=== PATIENT | male | born 1975 | race Caucasian/White ===

== ENCOUNTER → 2016-12-21 | Outpatient (CLI) | payer OTHER ==
--- NOTE | 2016-12-22 10:25 | MRI ---
HISTORY: Cervicalgia, radiculopathy Study: MRI cervical spine without contrast Comparison: None Technique: Multiplanar multisequence MRI of the cervical spine was obtained utilizing standard depar tmental protocol. Findings: Alignment of the cervical spine is maintained. No abnormal signal characteristics of the bone marro w can be identified. No evidence for fracture or significant bone or edema can be seen. The surrou nding soft tissues are unremarkable. The cervical spinal cord is normal in size and configuration a nd without foci of abnormal signal. C2 -- C3: No evidence for compressive disc disease. The neural foramina are patent. The joints are n ormal. C3 -- C4: No evidence for compressive disc disease. The neural foramina are patent. The joints are n ormal. C4 -- C5: No evidence for compressive disc disease. The neural foramina are patent. The joints are n ormal. C5 -- C6: No evidence for compressive disc disease. The neural foramina are patent. The joints are n ormal. C6 -- C7: No evidence for compressive disc disease. The neural foramina are patent. The joints are n ormal. C7 -- T1: No evidence for compressive disc disease. The neural foramina are patent. The joints are n ormal. IMPRESSION: No evidence for compressive disc disease or compressive spondylitic change at any level Reported By:
== END ==
LOC: RAD 14:52
PROVIDERS: ATTEND Nurse Practitioner Family
DX: M54.2 Cervicalgia (principal); S46.001S Unspecified injury of muscle(s) and tendon(s) of the rotator cuff of right shoulder, sequela; X58.XXXS Exposure to other specified factors, sequela
CPT/HCPCS: 72141

== ENCOUNTER 2017-10-02 10:38 | Observation (INO) | payer OTHER ==
[2017-10-02] MEDS ORDERED: ZOFRAN INJ 4 MG VIAL IVP PRN (12:55)
[2017-10-02] MEDS ORDERED: PEPCID 20 MG IV PREMIX* 20 MG/50 ML BAG IV PRN (12:55)
[2017-10-02 13:25] LABS: ALANINE AMINOTRANSFERASE 14 Units/L (12-78); ALBUMIN 3.3 g/dL (3.4-5.0); ALKALINE PHOSPHATASE 52 Units/L (46-116); AMYLASE 36 Units/L (25-115); ASPARTATE AMINO TRANSFERASE 12 Units/L (15-37); BLOOD UREA NITROGEN 8 mg/dL (7-18); CALCIUM 8.3 mg/dL (8.5-10.1); CARBON DIOXIDE 30.4 mmol/L (21-32); CHLORIDE 105 mmol/L (98-107); COR CA(FOR HYPOALB) 8.9 mg/dL (8.5-10.1); LIPASE 91 Units/L (73-393); SODIUM 141 mmol/L (136-145); TOTAL PROTEIN 7.2 g/dL (6.4-8.2); eGFR BLACK RACES > 60 (>60); eGFR NON BLACK RACES > 60 (>60)
[2017-10-02] MEDS: NS 1000 ML 1,000 ML IV SCH (13:33)
[2017-10-02] MEDS: PERCOCET TAB 5/325 MG PO PRN ×2 (13:34→20:32)
[2017-10-02 13:51] LABS: BASOPHILS % (AUTO) 0.3 % (0.2-1.0); EOSINOPHILS # (AUTO) 0.1 x10^3/uL (0.0-0.2); EOSINOPHILS % (AUTO) 0.8 % (0.9-2.9); HEMATOCRIT 38.9 % (42.0-54.0); HEMOGLOBIN 13.7 g/dL (13.5-18.0); LYMPHOCYTES # (AUTO) 0.8 X10^3/uL (1.3-2.9); MEAN CORPUSCULAR HEMOGLOBIN 30.8 pg (27.0-34.0); MEAN CORPUSCULAR HGB CONC 35.2 g/dL (33.0-35.0); MEAN CORPUSCULAR VOLUME 87.4 fL (80.0-100.0); MEAN PLATELET VOLUME 8.9 fL (7.4-11.0); MONOCYTES # (AUTO) 0.4 x10^3/uL (0.3-0.8); MONOCYTES % (AUTO) 4.7 % (0.0-13.0); NEUTROPHILS # (AUTO) 7.3 x10^3/uL (2.2-4.8); NEUTROPHILS % (AUTO) 85.2 % (42.0-75.0); PLATELET COUNT 186 X10^3/uL (150.0-450.0); RED BLOOD COUNT 4.45 X10^6/uL (4.7-6.0); WHITE BLOOD COUNT 8.6 X10^3/uL (3.6-10.0)
[2017-10-02 14:14] VITALS: BMI 21.1
[2017-10-02] MEDS: PHENERGAN INJ 25 MG IVP PRN (15:47)
--- NOTE | 2017-10-02 16:24 | RAD ---
HISTORY: Abdominal pain, nausea, vomiting, dehydration, weakness Study: Acute abdominal series Comparison: None Findings: The lungs are clear without consolidation, effusion or pneumothorax. The cardiac and mediastinal con tours are within normal limits. Flat plate and upright evaluation of the abdomen demonstrates a normal bowel gas pattern. No gross fr ee intraperitoneal air. No pathological soft tissue mass or calcification can be observed. The bony structures are grossly intact. IMPRESSION: 1. No acute cardiopulmonary disease. 2. No evidence of acute abdominal pathology. Reported By:
[2017-10-02 17:34] LABS: BILIRUBIN,URINE NEGATIVE (NEGATIVE); BLOOD/HEMOGLOBIN,URINE NEGATIVE (NEGATIVE); GLUCOSE, URINE 2+ (NEGATIVE); KETONES,URINE NEGATIVE (NEGATIVE); LEUKOCYTE ESTERASE ,URINE 1+ (NEGATIVE); NITRITES,URINE NEGATIVE (NEGATIVE); PROTEIN,URINE 2+ (NEGATIVE); UROBILINOGEN,URINE 1+ (NORMAL)
[2017-10-02 17:40] LABS: APPEARANCE,URINE HAZY (CLEAR); BACTERIA,URINE TRACE /HPF (NEGATIVE); COLOR,URINE YELLOW (YELLOW); RBC,URINE 0-2 /HPF (NEGATIVE); SQUAMOUS EPITHELIAL CELL,UR RARE /HPF (NEGATIVE)
--- NOTE | 2017-10-02 18:02 | DR.H&P ---
H&P - History & Physical for Day of: H&P Date: 10/02/17 - Chief Complaint Chief Complaint: WEAKNESS, NAUSEA, VOMITING, DIARRHEA - Allergies Allergies/Adverse Reactions: Allergies Allergy/AdvReac Type Severity Reaction Status Date / Time No Known Drug Allergies Allergy Verified 10/02/17 12:53 - Past Surgical History Surgical History: Ortho Surgery - Family History Family Medical History: Cancer - Social History Does patient currently use any type of tobacco product: Yes Have you used tobacco products in the last 12 months: Yes Type of Tobacco Use: Cigarettes How many years tobacco product used: 35 Does any household member use tobacco: No Alcohol Use: Occasionally Drug Use: None - Medications Home Medications: Amlodipine Besylate [NORVASC 5 MG *] 1 tab PO HS 10/02/17 [History Confirmed 02/11] Gabapentin [NEURONTIN CAP 300 mg *] 1 cap PO TID 10/02/17 [History Confirmed 02/11] Oxycodone HCl/Acetaminophen [Oxycodone-Acetaminophen 10-325] 1 tab PO Q6H PRN [History Confirmed 10/02/17] Zolpidem Tartrate [Zolpidem Tartrate] 1 tab PO HS 10/02/17 [History Confirmed ] - Review of Systems Constitutional: See HPI, Weakness Eyes: No Symptoms Reported ENT: No Symptoms Reported Respiratory: No Symptoms Reported Cardiovascular: No Symptoms Reported Gastrointestinal: Nausea, Vomiting, Diarrhea Genitourinary: No Symptoms Reported Musculoskeletal: No Symptoms Reported Skin: No Symptoms Reported Neurological: No Symptoms Reported - Physical Exam Vital Signs: Temperature 98.8 F Respiratory Rate 71 Blood Pressure [Left Arm] 133/81 O2 Sat by Pulse Oximetry 99 Oriented: Normal Eyes: Normal Ear: Normal Nose: Normal Throat: Normal Respiratory: Clear Throughout Cardiovascular: Normal : Normal Auscultation: Bowel Sounds: Normal Palpation: Normal Tenderness: Diffuse Skin: Normal Musculoskeletal: Normal Psychiatric: Normal Mood Description: Calm Affect: Normal Speech Pattern: Clear - Assessment/Plan (1) Acute gastroenteritis Status: Acute Plan: LABS, ABD XRAY, IV PEPCID, ANTIEMETICS, IV HYDRATION (2) Dehydration Status: Acute Plan: LABS, ABD XRAY, IV PEPCID, ANTIEMETICS, IV HYDRATION (3) Weakness generalized Status: Acute Plan: LABS, ABD XRAY, IV PEPCID, ANTIEMETICS, IV HYDRATION (4) UTI (urinary tract infection) Status: Acute Plan: ROCEPHIN IV
[2017-10-02] MEDS: ROCEPHIN 1 GM IV PREMIX 1 GM/50 ML IV.SOLN. IV SCH (18:31)
[2017-10-03] MEDS: NS 1000 ML 1,000 ML IV SCH ×4 (01:42→19:32)
[2017-10-03] MEDS: PERCOCET TAB 5/325 MG PO PRN ×3 (04:39→18:17)
[2017-10-03 08:14] LABS: BASOPHILS # (AUTO) 0.1 X10^3/uL (0.0-0.1); BASOPHILS % (AUTO) 0.9 % (0.2-1.0); EOSINOPHILS # (AUTO) 0.2 x10^3/uL (0.0-0.2); EOSINOPHILS % (AUTO) 2.7 % (0.9-2.9); HEMOGLOBIN 13.6 g/dL (13.5-18.0); LYMPHOCYTES # (AUTO) 1.2 X10^3/uL (1.3-2.9); LYMPHOCYTES % (AUTO) 18.6 % (21.0-51.0); MEAN CORPUSCULAR HEMOGLOBIN 30.6 pg (27.0-34.0); MEAN CORPUSCULAR HGB CONC 34.8 g/dL (33.0-35.0); MEAN CORPUSCULAR VOLUME 87.8 fL (80.0-100.0); MEAN PLATELET VOLUME 8.3 fL (7.4-11.0); MONOCYTES # (AUTO) 0.3 x10^3/uL (0.3-0.8); MONOCYTES % (AUTO) 4.8 % (0.0-13.0); NEUTROPHILS # (AUTO) 4.7 x10^3/uL (2.2-4.8); PLATELET COUNT 181 X10^3/uL (150.0-450.0); RED BLOOD COUNT 4.44 X10^6/uL (4.7-6.0); RED CELL DISTRIBUTION WIDTH 12.8 % (11.6-16.5); WHITE BLOOD COUNT 6.5 X10^3/uL (3.6-10.0)
[2017-10-03 08:22] LABS: ALANINE AMINOTRANSFERASE 14 Units/L (12-78); ALBUMIN 2.9 g/dL (3.4-5.0); ALKALINE PHOSPHATASE 52 Units/L (46-116); ASPARTATE AMINO TRANSFERASE 11 Units/L (15-37); BLOOD UREA NITROGEN 6 mg/dL (7-18); CALCIUM 8.1 mg/dL (8.5-10.1); CARBON DIOXIDE 27.4 mmol/L (21-32); CHLORIDE 109 mmol/L (98-107); CREATININE 0.67 mg/dL (0.70-1.30); SODIUM 142 mmol/L (136-145); TOTAL PROTEIN 6.7 g/dL (6.4-8.2); eGFR BLACK RACES > 60 (>60); eGFR NON BLACK RACES > 60 (>60)
[2017-10-03] MEDS: ROCEPHIN 1 GM IV PREMIX 1 GM/50 ML IV.SOLN. IV SCH (10:03)
[2017-10-03] MEDS: NEURONTIN CAP 300 MG PO SCH ×3 (10:03→21:29)
[2017-10-03] MEDS: TAMIFLU PO SCH ×2 (10:04→21:29)
[2017-10-03] MEDS: PROTONIX INJ 40 MG VIAL IVP SCH ×2 (10:04→21:30)
--- NOTE | 2017-10-03 13:44 | PCM.PROG ---
Progress Note - Progress Note for Day of Date: 10/03/17 - Subjective Subjective: patient is a 42-year-old white male who was a direct admit from Dr. Marcelo. Wilfredo office with flulike symptoms including nausea vomiting, fever cough cold and congestion.patient was treated prior to admission with IV hydration without improvement. This morning patient continues to feel weak all over and nauseated denies vomiting since admission yesterday afternoon. Patient also denies diarrhea since admission. Patient encouraged to collect a stool specimen and pruritus pulmonary toileting. Patient has complaints of right shoulder pain. Patient has a history of osteoarthritis in the right shoulder also has crepitus and limited range of motion. Plan to obtain an MRI of right shoulder, flu swab, repeat a.m. labs. - Past Medical Family Social History Past Med/Fam/Surg Hx: No changes since H&P Allergies: Allergies No Known Drug Allergies Allergy (Verified 10/02/17 12:53) - Review of Systems ROS: No change since H&P - Vital Signs and I&O's Vital Signs: Temperature 98.3 F Pulse Rate [Radial] 67 Respiratory Rate 18 Blood Pressure [Left Arm] 150/77 O2 Sat by Pulse Oximetry 98 Intake and Output: Intake & Output 10/01/17 10/02/17 10/03/17 10/04/17 11:59 11:59 11:59 11:59 Intake Total 2390 Balance 2390 - Physical Exam Oriented: Normal Eyes: Normal Ear: Normal Nose: Normal Throat: Normal Respiratory: Wheezes, Rhonchi Cardiovascular: Normal : Normal Auscultation: Bowel Sounds: Normal Tenderness: Diffuse Skin: Normal Musculoskeletal: Right, Shoulder, Back:Lumbar Psychiatric: Normal Mood Description: Calm Affect: Normal Speech Pattern: Clear, Appropriate - Laboratory and Diagnostics Result Diagrams: 10/03/17 08:00 10/03/17 08:00 Labs: Laboratory WBC 6.5 X10^3/uL (3.6-10.0) 10/03/17 08:00 RBC 4.44 X10^6/uL (4.7-6.0) L 10/03/17 08:00 Hgb 13.6 g/dL (13.5-18.0) 10/03/17 08:00 Hct 39.0 % (42.0-54.0) L 10/03/17 08:00 MCV 87.8 fL (80.0-100.0) 10/03/17 08:00 MCH 30.6 pg (27.0-34.0) 10/03/17 08:00 MCHC 34.8 g/dL (33.0-35.0) 10/03/17 08:00 RDW 12.8 % (11.6-16.5) 10/03/17 08:00 Plt Count 181 X10^3/uL (150.0-450.0) 10/03/17 08:00 MPV 8.3 fL (7.4-11.0) 10/03/17 08:00 Neut % 73.0 % (42.0-75.0) 10/03/17 08:00 Lymph % 18.6 % (21.0-51.0) L 10/03/17 08:00 [place] % 4.8 % (0.0-13.0) 10/03/17 08:00 Eos % 2.7 % (0.9-2.9) 10/03/17 08:00 Baso % 0.9 % (0.2-1.0) 10/03/17 08:00 Neut # 4.7 x10^3/uL (2.2-4.8) 10/03/17 08:00 Lymph # 1.2 X10^3/uL (1.3-2.9) L 10/03/17 08:00 [place] # 0.3 x10^3/uL (0.3-0.8) 10/03/17 08:00 Eos # 0.2 x10^3/uL (0.0-0.2) 10/03/17 08:00 Baso # 0.1 X10^3/uL (0.0-0.1) 10/03/17 08:00 Absolute Nucleated RBC 0.0 /100WBC 10/03/17 08:00 Sodium 142 mmol/L (136-145) 10/03/17 08:00 Corrected Sodium TNP 10/03/17 08:00 Potassium 3.8 mmol/L (3.5-5.1) 10/03/17 08:00 Chloride 109 mmol/L (98-107) H 10/03/17 08:00 Carbon Dioxide 27.4 mmol/L (21-32) 10/03/17 08:00 BUN 6 mg/dL (7-18) L 10/03/17 08:00 Creatinine 0.67 mg/dL (0.70-1.30) L 10/03/17 08:00 Est GFR (MDRD) Af Amer > 60 (>60) 10/03/17 08:00 Est GFR (MDRD) Non-Af > 60 (>60) 10/03/17 08:00 Glucose 101 mg/dL (65-99) H 10/03/17 08:00 Calcium 8.1 mg/dL (8.5-10.1) L 10/03/17 08:00 Corrected Calcium 9.0 mg/dL (8.5-10.1) 10/03/17 08:00 Total Bilirubin 0.20 mg/dL (0.2-1.0) 10/03/17 08:00 AST 11 Units/L (15-37) L 10/03/17 08:00 ALT 14 Units/L (12-78) 10/03/17 08:00 Alkaline Phosphatase 52 Units/L (46-116) 10/03/17 08:00 Total Protein 6.7 g/dL (6.4-8.2) 10/03/17 08:00 Albumin 2.9 g/dL (3.4-5.0) L 10/03/17 08:00 Globulin 3.8 g/dL (2.5-4.5) 10/03/17 08:00 Albumin/Globulin Ratio 0.8 Ratio (1.1-2.1) L 10/03/17 08:00 Amylase 36 Units/L (25-115) 10/02/17 13:05 Lipase 91 Units/L (73-393) 10/02/17 13:05 Specimen Type Clean catch urine 10/02/17 17:27 Urine Color Yellow (YELLOW) 10/02/17 17:27 Urine Appearance Hazy (CLEAR) 10/02/17 17: Urine pH 7.0 (5.0 - 8.0) 10/02/17 17:27 Ur Specific [place] 1.010 (1.000-1.030) 10/02/17 17:27 Urine Protein 2+ (NEGATIVE) 10/02/17 17: Urine Glucose (UA) 2+ (NEGATIVE) 10/02/17 17:27 Urine Ketones Negative (NEGATIVE) 10/02/17 17:27 Urine Occult Blood Negative (NEGATIVE) 10/02/17 17:27 Urine Nitrite Negative (NEGATIVE) 10/02/17 17:27 Urine Bilirubin Negative (NEGATIVE) 10/02/17 17:27 Urine Urobilinogen 1+ (NORMAL) 10/02/17 17:27 Ur Leukocyte Esterase 1+ (NEGATIVE) 10/02/17 17:27 Urine RBC 0-2 /HPF (NEGATIVE) 10/02/17 17:27 Urine WBC 0-2 /HPF (NEGATIVE) 10/02/17 17:27 Ur Squamous Epith Cells Rare /HPF (NEGATIVE) 10/02/17 17:27 Urine Bacteria Trace /HPF (NEGATIVE) 10/02/17 17:27 Ur Culture Indicated? No/not indicated 10/02/17 17:27 Stool Description 12 oz. unformed brn 10/03/17 10:00 Stl Occult Blood (IFOB) Negative (NEGATIVE) 10/03/17 10:00 - Plan (1) Bronchitis Status: Acute Plan: continue iv atbx, add solu medrol. flu swab, resp therapy (2) Acute gastroenteritis Status: Acute Plan: LABS, ABD XRAY, IV PEPCID, ANTIEMETICS, IV HYDRATION (3) Hypertension Status: Acute (4) Primary osteoarthritis, right shoulder Status: Acute Plan: mri right shoulder. pain control (5) Flu-like symptoms Status: Acute (6) Dehydration Status: Acute Plan: LABS, ABD XRAY, IV PEPCID, ANTIEMETICS, IV HYDRATION
[2017-10-03] MEDS: SOLU-Medrol 125 MG VIAL IVP SCH ×2 (14:00→21:30)
[2017-10-03] MEDS ORDERED: DEMEROL INJ IM ONE (19:34)
[2017-10-03] MEDS ORDERED: AMBIEN PO SCH (21:00)
[2017-10-03] MEDS ORDERED: NORVASC TAB 5 MG PO SCH (21:00)
--- NOTE | 2017-10-03 22:20 | MRI ---
MRI of the right shoulder Indication: Right shoulder pain. Findings: Hardware seen from prior rotator cuff repair has normal MRI appearance. No dislodgement of the anchor is seen. There is tendinosis of the supraspinatus and infra spinatus tendons without tendo n tear. No rotator cuff tear seen. There is trace fluid within the subacromial/subdeltoid bursa. The labrum shows no tear. There is mild degenerative arthrosis of the AC and glenohumeral joints. Conclusion: Tendinosis of the supraspinatus and infra spinatus tendons without evidence of tendon tea r. Prior tendon repair hardware appears intact. Reported By:
[2017-10-04] MEDS: NS 1000 ML 1,000 ML IV SCH ×3 (01:05→16:16)
[2017-10-04] MEDS: PHENERGAN INJ 25 MG IVP PRN (01:06)
[2017-10-04] MEDS: PERCOCET TAB 5/325 MG PO PRN ×3 (01:06→17:13)
[2017-10-04] MEDS: NEURONTIN CAP 300 MG PO SCH ×2 (05:59→14:30)
[2017-10-04] MEDS: SOLU-Medrol 125 MG VIAL IVP SCH (05:59)
[2017-10-04 06:42] LABS: BASOPHILS % (AUTO) 0.2 % (0.2-1.0); HEMATOCRIT 39.3 % (42.0-54.0); HEMOGLOBIN 13.9 g/dL (13.5-18.0); LYMPHOCYTES # (AUTO) 0.5 X10^3/uL (1.3-2.9); LYMPHOCYTES % (AUTO) 5.7 % (21.0-51.0); MEAN CORPUSCULAR HEMOGLOBIN 31.1 pg (27.0-34.0); MEAN CORPUSCULAR HGB CONC 35.3 g/dL (33.0-35.0); MEAN CORPUSCULAR VOLUME 88.2 fL (80.0-100.0); MONOCYTES # (AUTO) 0.1 x10^3/uL (0.3-0.8); MONOCYTES % (AUTO) 0.9 % (0.0-13.0); NEUTROPHILS # (AUTO) 7.7 x10^3/uL (2.2-4.8); NEUTROPHILS % (AUTO) 93.2 % (42.0-75.0); PLATELET COUNT 245 X10^3/uL (150.0-450.0); RED BLOOD COUNT 4.46 X10^6/uL (4.7-6.0); WHITE BLOOD COUNT 8.2 X10^3/uL (3.6-10.0)
[2017-10-04 06:52] LABS: BAND NEUTROPHILS % 3 % (0-10); PLATELET MORPHOLOGY COMMENT NORMAL (NORMAL)
[2017-10-04 06:56] LABS: ALANINE AMINOTRANSFERASE 15 Units/L (12-78); ALBUMIN 3.1 g/dL (3.4-5.0); ALKALINE PHOSPHATASE 72 Units/L (46-116); ASPARTATE AMINO TRANSFERASE 12 Units/L (15-37); BLOOD UREA NITROGEN 5 mg/dL (7-18); CALCIUM 8.1 mg/dL (8.5-10.1); CARBON DIOXIDE 20.7 mmol/L (21-32); CHLORIDE 107 mmol/L (98-107); COR CA(FOR HYPOALB) 8.8 mg/dL (8.5-10.1); COR NA(FOR HYPERGLY) 146 mmol/L (136-145); CREATININE 0.93 mg/dL (0.70-1.30); SODIUM 142 mmol/L (136-145); eGFR BLACK RACES > 60 (>60); eGFR NON BLACK RACES > 60 (>60)
[2017-10-04] MEDS ORDERED: K-LYTE EFFERVESCENT PO PRN (08:00)
[2017-10-04] MEDS ORDERED: POTASSIUM CHL 40 MEQ/NS 0.45% 500 ML IV PRN (08:00)
[2017-10-04] MEDS ORDERED: POTASSIUM CHLORIDE LIQ 20 MEQ UDC PO PRN (08:00)
[2017-10-04] MEDS ORDERED: MAG-OX TAB PO PRN (08:00)
[2017-10-04] MEDS ORDERED: K-RIDER 10 MEQ/NS 100 ML 10 MEQ/100 ML BAG IV PRN (08:00)
[2017-10-04] MEDS ORDERED: POTASSIUM CHL 60 MEQ/NS 0.45% 500 ML IV PRN (08:00)
[2017-10-04] MEDS ORDERED: MAGNESIUM SULFATE 1 GM/100 mL PREMIX 1 GM/100 ML BAG IV PRN (08:00)
[2017-10-04] MEDS: ROCEPHIN 1 GM IV PREMIX 1 GM/50 ML IV.SOLN. IV SCH (08:09)
[2017-10-04] MEDS: TAMIFLU PO SCH (08:10)
[2017-10-04] MEDS: PROTONIX INJ 40 MG VIAL IVP SCH (08:10)
[2017-10-04] MEDS ORDERED: DEMEROL INJ IM ONE (13:30)
[2017-10-04 16:15] VITALS: BP 168/85
== END 2017-10-04 17:44 | disposition home or self-care (01) ==
LOC: MED/SURG 10:38
PROVIDERS: ADMIT Internal Medicine; ATTEND Internal Medicine
DX: K52.89 Other specified noninfective gastroenteritis and colitis (principal); E86.0 Dehydration; R53.1 Weakness; N39.0 Urinary tract infection, site not specified; J20.9 Acute bronchitis, unspecified; I10 Essential (primary) hypertension; M19.011 Primary osteoarthritis, right shoulder
CPT/HCPCS: 36415; 73221; 74022; 80053; 81001; 82150; 82270; 83690; 83735; 84132; 85025; 87045; 87427; 87502; 87899; A4216; A4222; C9113; G9035; G0378; J0696; J2175; J2550; J2930